=== PATIENT | female | born 1990 | race Caucasian/White ===

== ENCOUNTER 2023-12-24 22:01 | Emergency (ER) | payer SELFPAY ==
[2023-12-24 22:02] VITALS: BP 150/100
--- NOTE | 2023-12-24 22:28 | ED.GENMED ---
History of Present Illness
General
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
Source: patient
Exam Limitations: none
Time Seen by Provider: 12/24/23 22:10
Nursing documentation reviewed up to this point in time: agreed with
Travel History
Have you had any contact with someone who has COVID-19?: No
Do you have any symptoms of coronavirus? Fever > 100 degrees, chills, cough, shortness of breath, sore throat, loss of taste or smell, muscle aches, or headache?: No
History of Present Illness
History of Present Illness:
This is a 33-year-old female who presents with several day history of painful inflamed nodule right mid labia majora. She has been attempting to apply local heat as well as trying to squeeze the area and tried to aashish it tonight without much
success. Local painful nodule is slowly increasing in size and is much more tender. No history of similar labial abscesses in the past but she has had right axillary skin abscess in the past that resolved with local measures.
She denies fever no chills, no dysuria no urgency nor hematuria, no vaginal discharge, no abdominal pain or back pain.
She denies risk of , last menstrual period 1 week ago. She has Nexplanon in place.
No history of diabetes nor immunocompromise.
Her daily medications include Seroquel, Lamictal, Klonopin, Adderall.
Past History
Past History
ED Past Medical History: Seizures and Psychiatric
ED Past Surgical History: None
Social History
Tobacco: Non-smoker
Drug: None
Living: with family
Employment: Employed
Family History
Family History: Other (Noncontributory)
Phy Exam
Physical Exam
Physical Exam:
GENERAL: 33-year-old overweight female appears her stated age, bright and alert, pleasant, appears in no acute distress. Significant other is accompanying. Afebrile. Mild hypertension noted on initial triage vital signs.
EYE: anicteric
NECK: Supple, nontender, no meningismus, no significant adenopathy.
ENT: oral mucosa is moist. No rhinorrhea.
CARDIAC: Regular rate and rhythm. no murmur.
LUNGS: Clear breath sounds bilaterally, no acute respiratory distress, no wheezes/rales/rhonchi
ABDOMEN: Soft, nondistended, without focal tenderness, no r/g, no cvat. normoactive BS.
: Mid aspect of the right labia majora is a 1.5 cm firm inflamed mildly tender skin abscess that is without fluctuance nor pointing. There is no surrounding erythema nor surrounding edema no inguinal adenopathy..
NEUROLOGICAL: Alert and oriented x3, no focal neuro deficits. Gait is steady.
SKIN: Warm and dry, normal color, skin intact.
MUSCULOSKELETAL: No C/C/E. peripheral pulses are full and equal b/l. No palpable tenderness.
PSYCH: Normal and appropriate interaction.
Course
Orders/Labs/Results
Orders:
Orders
12/24/23 22:24
Ibuprofen [Motrin] 800 mg PO NOW STA
Sulfamethox./Trimethoprim Ds [Bactrim Ds 800 mg/160 mg] 1 tablet PO NOW STA
Vital Signs
Initial and Last Documented VS:
Initial Vital Signs
Temp Pulse Resp BP Pulse Ox
98 F 100 20 150/100 100
12/24/23 22:02 12/24/23 22:02 12/24/23 22:02 12/24/23 22:02 12/24/23 22:02
Last Documented Vital Signs
Temp Pulse Resp BP Pulse Ox
98 F 96 16 144/98 97
12/24/23 22:02 12/24/23 22:39 12/24/23 22:39 12/24/23 22:39 12/24/23 22:39
MDM/Problems Addressed
Differential Diagnosis Includes:
Patient presents with painful subcutaneous skin nodule right mid labia majora that appears to be skin abscess in nature. Abscess is quite firm without fluctuance nor pointing and at this point not amenable to I&D.
There is no surrounding erythema nor edema, no inguinal adenopathy.
Patient has no history of immunocompromise nor history of diabetes.
No history of similar episodes in the past and no known history of MRSA.
Will treat conservatively with a course of Bactrim for coverage of potential MRSA. Recommend she continue local warm compresses.
Will prescribe ibuprofen for pain.
Follow-up with PCP for recheck.
Return precautions discussed.
*Pulse Oximetry
Patient hypoxic: no
*Critical Care Note
Total Time (30-74mins, 75-104mins- exclusive of procedures): Not Applicable
ED Attending Note
-
Portions of this chart may have been created with voice recognition software.� Occasional wrong word or��sound alike� substitutions may have occurred due to the inherent limitations of voice recognition software.
Discharge Plan
Departure
Patient Disposition: Home (Routine Discharge)
Date of Disposition: 12/24/23
Time of Disposition: 22:35
Patient with high blood pressure during this ER visit?: Yes
Condition: Good
Discharge Problem:
Right labia majora skin abscess
Instructions: Skin Abscess, BLOOD PRESSURE
Prescriptions:
New
sulfamethoxazole-trimethoprim [Bactrim DS] 800-160 mg tablet
1 tab PO BID Qty: 20 0RF
ibuprofen 800 mg tablet
800 mg PO QIDPRN PRN (Reason: pain, fever) Qty: 30 0RF
hydrocodone-acetaminophen 5-300 mg tablet
1 tab PO Q8H PRN (Reason: moderate pain) Qty: 5 0RF
No Action
fluconazole 150 MG tablet
150 mg PO ONCE Qty: 2 0RF
Rx Instructions:
May repeat x 1 if necessary
amoxicillin-pot clavulanate 1 TABLET tablet
1 tab PO Q12 Qty: 14 0RF
Activity Restrictions/Additional Instructions:
Continue hot moist compresses for 15 to 20 minutes 4 times daily over the next several days.
Avoid squeezing or attempting to aashish the skin abscess.
Follow-up with your primary care physician later this week for recheck.
Interventions
Interventions:
*Risk Screen - Suicide Last Done: 12/24/23 22:02
*General Assessment Last Done: 12/24/23 22:38
*Neglect/Abuse Screening Last Done: 12/24/23 22:02
ED- Fall Risk Assessment Last Done: 12/24/23 22:53
*ED COVID-19 Vaccine History Last Done: 12/24/23 22:38
*Nursing Disposition Last Done: 12/24/23 22:53
ED-Female Genitourinary Assessment Last Done: 12/24/23 22:38
Discharge Date and Time
Discharge Date/Time: 12/24/23 22:54
Print Language: L[place]
[2023-12-24] MEDS: BACTRIM DS 800 MG/160 MG 1 TABLET PO (22:36)
[2023-12-24] MEDS: MOTRIN 800 MG PO (22:36)
[2023-12-24 22:39] VITALS: BP 144/98
== END 2023-12-24 22:54 | disposition home or self-care (01) ==
LOC: EMR 22:01
PROVIDERS: EMERGENCY PHYSICIAN Emergency Medicine
DX: N76.4 Abscess of vulva (principal); R03.0 Elevated blood-pressure reading, without diagnosis of hypertension; R56.9 Unspecified convulsions; F32.A Depression, unspecified; F41.9 Anxiety disorder, unspecified; Z79.899 Other long term (current) drug therapy
CPT/HCPCS: 99283